=== PATIENT | male | born 1945 | race Caucasian/White ===

== ENCOUNTER → 2020-05-30 | Outpatient (CLI) | payer MEDICARE ==
--- NOTE | 2020-05-30 14:23 | Diagnostic Imaging Report ---
EXAM: Right upper quadrant abdominal ultrasound INDICATION: Right upper quadrant pain COMPARISON: None. TECHNIQUE: Transverse and longitudinal images of the right upper quadrant abdomen were obtained FINDINGS: Liver: Size: 17.7 cm in the right midclavicular line, normal Appearance: Normal echogenicity, smooth contour Mass: No focal masses Gallbladder: No gallbladder distension, pericholecystic fluid, wall thickening, stone, or reported sonographic Santiago's sign. Gallbladder wall measures 3 mm. Bile Ducts: Intrahepatic Ducts: No dilatation Extrahepatic Ducts: Common bile duct measures 4 mm Pancreas: Visualized portions of the pancreatic head, neck and proximal body are normal. Kidney: The right kidney measures 13.0 cm without evidence of hydronephrosis or stone. Vessels: Aorta: Visualized portions are normal Inferior Vena Cava: Visualized portions are normal Main Portal Vein: 1.0 cm, normal size with hepatopetal flow. Free Fluid: No ascites or pleural effusion IMPRESSION: No sonographic evidence of cholelithiasis or cholecystitis. Signed by: Renetta Javed MD on 05/30/2020 2:19 PM
== END ==
LOC: US 13:36
PROVIDERS: ATTEND Internal Medicine Endocrinology, Diabetes & Metabolism
DX: K80.20 Calculus of gallbladder without cholecystitis without obstruction (principal)
CPT/HCPCS: 76705

== ENCOUNTER → 2023-09-25 | Outpatient (REF) | payer MEDICARE ==
[~2023-09-25] MED LIST: IOPAMIDOL 370 MG/ML 100 ML INFUS..BTL INJ ONE
[2023-09-25 16:30] LABS: CREATININE, SERUM 0.84 mg/dL (0.72-1.25)
== END ==
LOC: CT 15:31
PROVIDERS: ATTEND Internal Medicine Endocrinology, Diabetes & Metabolism
DX: R10.84 Generalized abdominal pain (principal); N20.0 Calculus of kidney; N20.9 Urinary calculus, unspecified
CPT/HCPCS: 36415; 74178; 82565; 84520; Q9967